=== PATIENT | female | born 1990 ===

== ENCOUNTER 2017-07-29 12:18 | Emergency (ER) | payer OTHER ==
[2017-07-29 12:50] VITALS: BP 123/82; PULSE 114; TEMP 99; O2SAT 98
[2017-07-29] MEDS ORDERED: Emtricitabine-Tenofovir 200 mg-300 mg Tab PO STA ×2 (13:54→15:56)
[2017-07-29] MEDS ORDERED: cefTRIAXone (Rocephin) 250 mg Inj IM STA (13:54)
[2017-07-29] MEDS ORDERED: Emtricitabine-Tenofovir 200 mg-300 mg Tab PO NR (14:00)
[2017-07-29 14:42] LABS: BASO % 0.6 % (0.0-2.0); EOS % 0.2 % (0.0-4.0); HEMOGLOBIN 15.3 g/dL (11.0-16.0); LYMPH # 3.2 K/uL (1.0-4.3); LYMPH % 40.4 % (20.0-40.0); MEAN CELL VOLUME 90.9 fL (81.0-99.0); MEAN CORPUSCULAR HEMOGLOBIN 30.9 pg (27.0-31.0); MEAN PLATELET VOLUME 8.7 fL (7.2-11.7); MONO # 0.4 K/uL (0.0-0.8); MONO % 4.7 % (0.0-10.0); NEUT # 4.3 K/uL (1.8-7.0); NEUT % 54.1 % (50.0-75.0); RBC 4.96 Mil/uL (3.80-5.20); RED CELL DISTRIBUTION WIDTH 13.7 % (11.5-14.5)
[2017-07-29 14:48] LABS: SQUAMOUS EPITHIAL 1 /hpf (0-5); URINE BACTERIA OCC (<OCC); URINE BILIRUBIN NEGATIVE (NEGATIVE); URINE BLOOD NEGATIVE (NEGATIVE); URINE CLARITY Clear (Clear); URINE GLUCOSE (UA) NORMAL (Normal); URINE LEUKOCYTE ESTERASE NEG Leu/uL (Negative); URINE NITRATE NEGATIVE (NEGATIVE); URINE PROTEIN NEGATIVE (NEGATIVE); URINE UROBILINOGEN NORMAL mg/dL (0.2-1.0)
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
[2017-07-29 14:55] LABS: URINE COLOR STRAW (YELLOW)
[2017-07-29 14:58] LABS: ALB/GLOB RATIO 1.1 (1.0-2.1); ALBUMIN 4.8 g/dL (3.5-5.0); ALT/SGPT 68 U/L (9-52); AST/SGOT 45 U/L (14-36); BLOOD UREA NITROGEN 5 mg/dL (7-17); CALCIUM 8.9 mg/dl (8.6-10.4); GFR AFRICAN-AMERICAN > 60; GFR NON-AFRICAN AMERICAN > 60
[2017-07-29 15:27] LABS: HEPATITIS B SURFACE AG Negative (NEGATIVE)
[2017-07-29 15:32] VITALS: RESP 18
[2017-07-29 15:32] LABS: HEPATITIS A IGM NEGATIVE (NEGATIVE); HEPATITIS B CORE AB NEGATIVE (NEGATIVE)
[2017-07-29 15:45] LABS: HEPATITIS C ANTIBODY NEGATIVE (NEGATIVE)
== END 2017-07-29 16:10 | disposition home or self-care (01) ==
LOC: C.ER 12:18
DX: T76.21XA Adult sexual abuse, suspected, initial encounter (principal)
CPT/HCPCS: 80053; 80074; 81001; 84703; 85025; 86592; 86703; 86706; 96372; 99285; J0696